=== PATIENT | female | born 1990 | race Caucasian/White ===

== ENCOUNTER → 2019-02-27 | Outpatient (CLI) | payer SELFPAY ==
[~2019-02-27] MED LIST: CODE-54 PO; FERR-57 PO; IBP600T1 PO; PREN-93 PO
--- NOTE | 2019-02-27 12:47 | Diagnostic Imaging Report ---
INDICATION: Abdominal pain TECHNIQUE: Multiple real-time echeverria scale sonographic images of the abdomen. CORRELATION STUDY: None FINDINGS: LIVER: Normal echotexture within the visualized portions of the liver. There is normal, hepatopedal direction of flow within the main portal vein. Liver length 14.5 cm GALLBLADDER: No shadowing gallstones or pericholecystic fluid. Wall thickness is upper limits of normal at 3 mm. COMMON BILE DUCT: Nondilated at 0.3 cm. PANCREAS: Limited in visualization. The visualized portions appearing unremarkable. SPLEEN: Unremarkable. ABDOMINAL AORTA: Unremarkable. INFERIOR VENA CAVA: Limited in visualization. RIGHT KIDNEY: 10.5 x 4.4 x 5.0 cm. Unremarkable. LEFT KIDNEY: 9.1 x 4.8 x 4.6 cm. Unremarkable. OTHER: None. IMPRESSION: 1. Unremarkable-appearing abdominal ultrasound evaluation. Dictated by: Dictated on workstation # [id number]
--- NOTE | 2019-02-27 13:29 | Diagnostic Imaging Report ---
PROCEDURE: US Non-ob pelvis comp/trans. INDICATION: Abdominal pain, left lower quadrant. TECHNIQUE: Multiple real time echeverria scale sonographic images were obtained of the pelvis transabdominally and transvaginally. CORRELATION STUDY: None FINDINGS: UTERUS: 8.5 x 5.6 x 4.3 cm. The uterus appears unremarkable. ENDOMETRIUM: 3 mm. The endometrium appearing unremarkable. RIGHT OVARY: 3.6 x 2.5 x 2.3 cm. The right ovary has an unremarkable appearance. May be a few small physiologic follicles. No concerning mass. Normal blood flow. LEFT OVARY: Enlarged at 8.3 x 6.5 x 4.8 cm. There is a presence of hypo to anechoic cystic mass fairly sizable at 7.6 x 6.1 x 4.4 cm. Minimal internal septations along the peripheral margins versus adjacent cyst. Normal blood flow to the ovary. Small amount of pelvic fluid. IMPRESSION: 1. Large, 7.6 cm left ovarian cyst. This may very well be physiologic. However, given the overall size there is slightly complex septated appearance peripherally, would recommend followup imaging be obtained after approximately 2-3 menstrual cycles. Dictated by: Dictated on workstation # [id number]
== END ==
LOC: RAD 08:27
PROVIDERS: ATTEND Registered Nurse
DX: N83.202 Unspecified ovarian cyst, left side (principal)
CPT/HCPCS: 76700; 76830; 76856